=== PATIENT | female | born 1995 | race African-American/Black ===

== ENCOUNTER 2019-11-27 20:02 | Emergency (ER) | payer SELFPAY ==
--- NOTE | 2019-11-27 21:10 | RAD ---
XR Chest 1 View Portable HISTORY: Chest pain COMPARISON: None FINDINGS: The heart size is normal. The lungs are well expanded without focal areas of consolidation, pneumothorax or pleural effusions. IMPRESSION: No radiographic evidence of acute cardiopulmonary process.
== END 2019-11-27 21:26 ==
LOC: ERS 20:02
DX: Z02.89 Encounter for other administrative examinations (principal); F41.9 Anxiety disorder, unspecified; F32.9 Major depressive disorder, single episode, unspecified
CPT/HCPCS: 71045; 99285